=== PATIENT | male | born 1965 | race African-American/Black ===

== ENCOUNTER 2018-03-19 05:15 | Day surgery (SDC) | payer OTHER ==
[2018-03-03 10:46] LABS: HEMATOCRIT 47.4 % (37.9-51.0); HEMOGLOBIN 15.5 g/dL (13.5-17.0); MEAN CORPUSCULAR HEMOGLOBIN 29.9 pg (27.0-33.4); MEAN CORPUSCULAR HGB CONC 32.7 g/dL (32.0-36.0); MEAN CORPUSCULAR VOLUME 91 fl (80-97); RED BLOOD COUNT 5.19 10^6/uL (4.35-5.55); RED CELL DISTRIBUTION WIDTH 13.5 % (11.5-14.0); WHITE BLOOD COUNT 4.6 10^3/uL (4.0-10.5)
[2018-03-03 10:51] LABS: APPEARANCE,URINE CLEAR; BILIRUBIN,URINE NEGATIVE (NEGATIVE); COLOR,URINE YELLOW; GLUCOSE, URINE NEGATIVE (NEGATIVE); KETONES,URINE NEGATIVE (NEGATIVE); LEUKOCYTE ESTERASE,URINE NEGATIVE (NEGATIVE); NITRITE,URINE NEGATIVE (NEGATIVE); PROTEIN,URINE NEGATIVE (NEGATIVE); URINE SPECIFIC GRAVITY 1.021; UROBILINOGEN,URINE NEGATIVE mg/dL (<2.0)
[2018-03-03 11:09] LABS: PLATELET COUNT 219 10^3/uL (150-450)
[2018-03-03 11:27] LABS: ANION GAP 13 (5-19); BLOOD UREA NITROGEN 14 mg/dL (7-20); CALCIUM 9.4 mg/dL (8.4-10.2); CARBON DIOXIDE 28 mmol/L (22-30); CHLORIDE 102 mmol/L (98-107); GLUCOSE 83 mg/dL (75-110); POTASSIUM 4.3 mmol/L (3.6-5.0); SODIUM 142.5 mmol/L (137-145)
[2018-03-19] MEDS ORDERED: CEFAZOLIN 2 GM/D5W RTU 2 GM/50 ML RTUPB IV ONE (05:17)
[2018-03-19] MEDS ORDERED: LIDOCAINE 1% INJ-PF (10 MG/ML) 30 ML SDV ONE (06:32)
[2018-03-19] MEDS ORDERED: BUPIVACAINE HCL 0.5 % INJ/PF 30 ML SDV ONE (06:32)
[2018-03-19] MEDS ORDERED: MIDAZOLAM 2 MG/2 ML INJ ONE (07:04)
[2018-03-19] MEDS ORDERED: FENTANYL CITRATE INJ/PF 100 MCG/2 ML AMPUL ONE (07:05)
[2018-03-19] MEDS ORDERED: PROPOFOL INJ 200 MG/20 ML VIAL IV ONE ×2 (07:05→07:06)
[2018-03-19] MEDS ORDERED: KETAMINE HCL INJ 500 MG/10 ML VIAL ONE (07:05)
[2018-03-19] MEDS ORDERED: ACETAMINOPHEN 1,000 MG/100 ML RTUPB IV ONE (07:06)
[2018-03-19] MEDS ORDERED: LIDOCAINE 1%/EPINEPHRINE INJ 20 ML VIAL ONE (07:13)
[2018-03-19] MEDS ORDERED: DIPHENHYDRAMINE HCL 50 MG/ML VIAL IV PRN (07:39)
[2018-03-19] MEDS ORDERED: OXYCODONE-ACETAMINOPHEN 5-325 MG TABLET PO PRN ×2 (07:39)
[2018-03-19] MEDS ORDERED: PROMETHAZINE HCL INJ 25 MG/1 ML VIAL IV PRN ×2 (07:39)
[2018-03-19] MEDS ORDERED: FENTANYL CITRATE INJ/PF 100 MCG/2 ML AMPUL IV PRN ×3 (07:39)
[2018-03-19] MEDS ORDERED: MEPERIDINE HCL/PF INJ 25 MG/1 ML DISP.SYRIN IV PRN (07:39)
--- NOTE | 2018-03-19 07:55 | Operative Report ---
Operative Report DATE OF SURGERY: 03/19/18 PREOPERATIVE DIAGNOSIS: Left medial meniscal tear POSTOPERATIVE DIAGNOSIS: Left medial meniscal tear. 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 Intact ACL. Grade 1 chondral malacia lateral compartment. Left lateral meniscal tear. Grade I chondromalacia the patellofemoral compartment OPERATION: Arthroscopic left partial medial and lateral meniscectomy SURGEON: NILO ORTIZ ANESTHESIA: LMAC PROCEDURE: With the patient on the operating table the left lower extremities prepped and draped in sterile fashion. The knee is fused with accommodation Marcaine, Xylocaine, and epinephrine. Subsequent medial and lateral infrapatellar portals are created for the introduction of arthroscope and debridements mentation. The joint is examined in systematic fashion findings as above. A partial medial meniscectomy was performed from approximately 8:00 in the face of the dial to 12:00 using combination basket Shanks, mechanical shaver, electric frequency ablation probe. Similarly a partial lateral meniscectomy was performed from approximately 5:00 to 12:00 on the face of the dial. The joint is again examined in systematic fashion with no new findings. The instrumentation was removed. The portals reapproximated interrupted nylon. Sterile compressive dressings applied. The patient's return to PACU in satisfactory condition.
--- NOTE | 2018-03-19 07:59 | Discharge Summary ---
Discharge Summary (SDC) - Discharge Final Diagnosis: Left medial meniscal tear Date of Surgery: 03/19/18 Discharge Date: 03/19/18 Condition: Good Treatment or Instructions: Remove wrap on Saturday Prescriptions: Oxycodone HCl [Oxaydo] 5 mg PO Q6 PRN #40 tablet.orl PRN Reason: Referrals: JAZMINE PACHECO JR, MD [Primary Care Provider] - Discharge Diet: As Tolerated, Regular Respiratory Treatments at Home: Deep Breathing/Coughing Discharge Activity: Activity As Tolerated Home Care Assistance: None Needed Report the Following to Your Physician Immediately: Shortness of Breath, Fever over 101 Degrees, Drainage-Foul Smelling
[2018-03-19] MEDS ORDERED: OXYCODONE HCL IR 5 MG TABLET PO PRN (08:32)
[2018-03-19] MEDS ORDERED: ONDANSETRON 4 MG TAB.RAPDIS SL PRN (08:32)
[2018-03-19 10:37] VITALS: BP 130/92
== END 2018-03-19 09:45 | disposition home or self-care (01) ==
LOC: OROUT 05:15
PROVIDERS: ATTEND Orthopaedic Surgery
DX: M23.301 Other meniscus derangements, unspecified lateral meniscus, left knee (principal); M23.332 Other meniscus derangements, other medial meniscus, left knee; M22.42 Chondromalacia patellae, left knee; K50.90 Crohn's disease, unspecified, without complications; Z79.899 Other long term (current) drug therapy
CPT/HCPCS: 36415; 85027; 80048; 81001; 29880; J2250; J3490 ×4; J3010; J2704; J0690; J0131; 1400